=== PATIENT | female | born 1955 | race Caucasian/White ===

== ENCOUNTER 2020-08-18 14:54 | Emergency (ER) | payer OTHER ==
[~2020-08-18] VITALS: Ht 165.1 cm; Wt 88.5 kg
[2020-08-18] MEDS ORDERED: REMERON15 M2 PO (19:20)
[2020-08-18 20:32] VITALS: BP 104/55
--- NOTE | 2020-08-21 07:20 | EKG ---
[address] [place] [address] ELECTROCARDIOGRAM REPORT Name: JENNIE SIFUENTES [facility] [id number] Admission: 08/18/20 Attend Phys: Discharge: 08/18/20 Date of : 53 Report #: [id number] [facility] ED Test Date: 2020-08-18 Test Time: 15:15:45 Pat Name: JENNIE SIFUENTES Department: Room: Gender: F Strong Nitric Operator: JCHAIRADU : 1955 Requested By: J Luis Veloz Order Number: [id number] MD: Jacob Naik Measurements Intervals [place] Rate: 96 P: 57 IA: 154 QRS: 75 QRSD: 93 T: 29 QT: 345 QTc: 436 Interpretive Statements Sinus rhythm RSR' in V1 or V2, probably normal variant Baseline wander in lead(s) V1 No previous ECG available for comparison Electronically Signed On 08-21-2020 7:20:06 SUPPORT WORKER by Jacob Naik [email or web address] <ELECTRONICALLY SIGNED> By: Jacob Naik MD, [facility] 08/21/20 0720 1515 14 Jacob Naik MD, FACC /EPI
== END 2020-08-18 20:48 ==
LOC: ER 14:54
DX: F32.9 Major depressive disorder, single episode, unspecified (principal); F20.2 Catatonic schizophrenia; F22 Delusional disorders; Z79.899 Other long term (current) drug therapy; Z88.1 Allergy status to other antibiotic agents; Z20.828 Contact with and (suspected) exposure to other viral communicable diseases

== ENCOUNTER 2020-08-18 21:39 | Inpatient (IN) | payer OTHER ==
[~2020-08-18] VITALS: Ht 167.6 cm; Wt 47.4 kg
[~2020-08-18 21:39] MED LIST: REMERON15 M2 PO
--- NOTE | 2020-08-18 22:52 | NUR ---
Pt arrived from ED to unit at 2044 via gurny. Pt able to transfer from rmo to bed with SBA. Pt is A&O x 3 upon initial assessment. Able to state name, where she is, month/year. Pt is calm and cooperative with assessment. Pt denies pain. Pt affect is flat, expressionless. Hair is disshevled, 2 layers of clothing on. Reports anxiety and depression both at 9/10. Denies decreased appetite, stating, when i am hungry i eat, when I am not I don't. Quiet demenaor. Denies any SI/HI. Pt oriented to her room. Indepedent with ADLs; completed oral cares, washed face, feet. Dr. Musa and MADHU Gomez notified of arrival of admit to unit and orders received. Will continue to monitor for any changes and safety per unit protocol.
[2020-08-19 00:13] VITALS: BP 113/70
[2020-08-19 08:13] VITALS: BP 100/53
[2020-08-19 09:24] VITALS: BP 100/53
--- NOTE | 2020-08-19 10:36 | NUR ---
1035 RESUMMED CARE FROM OVERNIGHT SHIFT THIS AM, PATIENT IN ROOM LYING QUIETLY. PATIENT DENIES SI/HI/AH/VH AT PRESENT PATIENT ALERT ORIENTED TO SELF AND PLACE. PATIENTS ABDOMEN SOFT FLAT BOWEL SOUNDS PRESENT LUNGS CLEAR. PATIENT IS VERY SAD NOT INTERACTING WITH STAFF PATIENT DID NOT WANT BREAKFAST. PATIENT DID COME TO EXERCISE GROUP AND DID PARTICIPATE PATIENT THEN WENT BACK TO ROOM. PATIENT NEEDS A LOT OF ENCOURAGEING TO EAT AND TO PARTICIPATE IN ACTIVITIES. WILL CONTINUE TO MONITOR PATIENT FOR SAFETY AND BEHAVIORS.
[2020-08-19 13:26] LABS: HEMATOCRIT 48.2 % (37.0-47.0); HEMOGLOBIN 15.6 gm/dL (12.0-15.0); MCH 31.2 pg (26.0-34.0); MCHC 32.4 g/dL (28.0-37.0); MCV 96.3 fL (80.0-100.0); WBC 5.7 thou/uL (4.0-11.0)
[2020-08-19 13:38] LABS: CALCIUM 9.3 mg/dL (8.5-10.1); CREATININE 0.8 mg/dL (0.6-1.0); POTASSIUM 4.3 mmol/L (3.5-5.1)
[2020-08-19 19:35] VITALS: BP 123/69
--- NOTE | 2020-08-20 05:18 | NUR ---
Assumed care of pt @ 1900. Pt calm et cooperative this shift. Refused HS medication. Pt states that she will "sleep fine without it". Unable to assess ambulation as pt remained bedridden this shift. VSWNL. Health assessment with no abnormalities noted at present time. Denies SI/HI/AVH at present time. Currently resting in bed with eyes closed. Will continue to monitor per unit protocol.
[2020-08-20 06:48] LABS: ALBUMIN 3.8 g/dL (3.4-5.0); DIRECT BILIRUBIN 0.1 mg/dL (<0.1-0.2); TOTAL BILIRUBIN 0.5 mg/dL (0.2-1.0); TOTAL PROTEIN 7.6 g/dL (6.4-8.2)
[2020-08-20 07:00] VITALS: BP 124/83
[2020-08-20 09:22] VITALS: BP 124/83
--- NOTE | 2020-08-20 10:48 | NUR ---
1045 RESUMMED CARE FROM OVERNIGHT SHIFT THIS AM, PATIENT IN ROOM ASLEEP. PATIENT IS ORIENTED TIMES 3 PATIENT DENIES SI/HI/AH/VH AT PRESENT. PATIENT DID NOT EAT BREAKFAST AND REFUSED HER MEDICATION. PATIENTS ABDOMEN SOFT FLAT BOWEL SOUNDS PRESENT LUNGS CLEAR. AROUND 10:00 I WENT AND ASKED PATIENT TO COME DAY ROOM SO SHE CAN PARTICIPATE IN GROUPS. SHE DID ASK FOR ICE WATER AND STATES SHE DOES NOT KNOW WHY SHE DOES NOT WANT TO EAT. WILL CONTINUE TO ENCOURAGE PATIENT TO EAT AND DRINK AND MONITOR FOR SAFETY AND BEHAVIORS.
[2020-08-21 03:07] VITALS: BP 103/66
--- NOTE | 2020-08-21 05:45 | NUR ---
Assumed care of patient at 1900. Pt in dining room watching tv throughout earlier portion of evening. Pt affect is flat and depressed. Pt is demeanor is quiet. Pt called and will be bringing pt some personal belongings (shoes, under garments) today. Pt clothing washed last night. Pt continues to report poor to no appetite. Offered dinner and snack at HS; declined, stating nothing sounded good. Pt was compliant with HS medications. First does of olanzipine administered with no s/s of adverse reactions. Pt has rested quietly in bed throughout night. Will continue to monitor for changes and safetuy. Pt is ambulatory and independent with ADLS. Pt continues to report depression and anxiety, denies SI/HI.
[2020-08-21 07:52] VITALS: BP 126/83
--- NOTE | 2020-08-21 17:09 | NUR ---
ISAAC recieved a call from Kathy Stone, . Kathy is the 2nd DPOA. She requested an update on the Pt and had questions concerning Pt's medicaitions. ISAAC provided and update and gave the names of medications. Kathy wanted information on what the medications were treating. ISAAC informed Kathy she would need to speak with Dr. Musa concerning this. ISAAC also informed a text was sent to Dr. Musa concerning her request. Kathy expressed satisfation with this. ISAAC provided Kathy with [facility] schedule and routine on the unit. ISAAC provided with 4 digit code for the Pt. Kathy gave a brief history on Pt. She informed Pt has been hoarding for the last 10-15 years. Pt has an apartment, seperate from her current residence. Pt does use this apartment for storage but it is not packed like her current home. Pt's family is assisting Pt's with cleaning out the home. Kathy expressed the home is unsafe due to the amount of hoarding that has occured over the years. Kathy stated the Pt is still employed with the [employer] as Pt's retirment has not been approved. Kathy also wanted to inform Pt has a history of low blood sugars and Pt gets fatigued if not eating enough protein. Kathy had no further questions or concerns. ISAAC will continue to follow.
--- NOTE | 2020-08-21 18:14 | NUR ---
Alert and orientated X4. Flat affect. States her goal is too feel less depressed. Denies SI/HI. Needs alot of encouragement to eat, prefers to isolate in room. Breath sounds clear. Reg HR auscultated. Hyperdynamic chest wall. Color pale pink with brisk capillary refill and palpable peripheral pulses. Active bowel sounds over soft, flat abdomen. White coating on tongue, able to displace, no erythema or discomfort. States she had BM 2 days ago. Independent with voiding. Refusing Megestrol, Dr. Musa aware. Also refusing glucerna shakes. Eating 10-20% of meals. Currently sitting in day room with peers watching TV.
[2020-08-21 19:43] VITALS: BP 93/67
--- NOTE | 2020-08-22 05:49 | NUR ---
08-21-19 CARE TRANSFERRED 1900 OBSERVED PT SITTING IN DAY ROOM. PT AAOX4, VSS, RR EVEN AND NONLABORED. PT REPORTS FEELING ANXIOUS, BUT HAS BEEN CALM AND COOPERATIVE. PT DENIES PAIN AND SI/HI. ZERO S/S OF ACUTE DISTRESS NOTED, PT WILL CONTINUE TO BE MONITOR PER [facility] PROTOCOL
[2020-08-22 09:16] VITALS: BP 108/68
--- NOTE | 2020-08-22 16:25 | NUR ---
ISAAC recieved a call from the Pt's , Bennie Rachel. Bennie wanted a update on the Pt and the Pt's treatment. ISAAC provided updates and answered Bennie qestions. ISAAC encouraged Bennie to speak with Pt's sisters concerning the conversation they had with Dr. Musa. ISAAC encouraged Bennie to also speak with the sisters on who will call to gather info to give to the rest of the family. Bennie was okay with this information and stated he would try to call the sisters. I did inform Bennie he could call the nurses station and speak with the Pt's nurse if he needed a daily update on the Pt behaviors. Bennie seemed to be okay with this information. He had no other questions or concerns at this time. ISAAC will continue to follow.
--- NOTE | 2020-08-22 18:09 | NUR ---
Alert and orientated X4. Flat affect. States concern is depression. Refusing meds and foods, drinking only H2O. Ambulates with slow, steady gait. Breath sounds clear t/o. Reg HR auscultated. Color pink with brisk capillary refill and palpable peripheral pulses. Independent with voiding. Active bowel sounds over soft, flat abdomen. States she had small BM yesterday. Took approximately 15 min to convince to take PRN ativan at lunch. Did eat part of lunch and snack per report. Refused again at dinner and procrastinated about 45 min before coming out to dining room. Did eat some dinner. No s/o distress.
[2020-08-22 19:32] VITALS: BP 128/87
--- NOTE | 2020-08-23 02:06 | NUR ---
08-22-20 CARE TRANSFERRED 1899. PT AAOX4, VSS, RR EVEN AND NONLABORED ON RA, PT PRESENTS TEARFUL AND WITHDRAWN, WHEN ASKED PT ABOUT WHAT IS MAKING HER SAD, SHE DID NOT ENGAGE IN COMMUNICATION. ASSISTED PT WITH BED ADJUSTEMENT FOR COMFORT. PT DENIED PAIN AND SI/HI. PT HAD NO DIFFICULTIES DURING MEDICATION ADMIN. AND DRANK 240ML OF WATER, PT REFUSED SECOND ATTEMPT FOR HS SNACK. ZERO S/S OF ACUTE DISTRESS NOTED, PT WILL CONTINUE TO BE MONITOR PER [facility] PROTOCOL.
[2020-08-23 09:19] VITALS: BP 102/70
--- NOTE | 2020-08-23 12:02 | NUR ---
ASSUMED CARE AT 0700 TODAY. PT. IN HER ROOM, WASHING HER FACE AND COMBING HER HAIR. SHE CAME ONTO THE UNIT AT BREAKFAST TIME. HOWEVER, SHE DID NOT EAT BREAKFAST, SHE SAT ON THE SOFA THE ENTIRE TIME. SHE RESISTED TAKING HER MORNING MEDICATION. SHE SPIT OUT MOST OF IT. SHE DID MANAGE TO GET ABOUT 1/2 DOWN WITH ASSISTANCE OF THIS RN. SHE IS QUIET AND ANSWERING QUESTIONS WITH SHORT ONE WORD ANDSWERS AT THIS TIME. SHE DID SIT ON THE SOFA FOR MORNING MEETING.
[2020-08-23 12:07] VITALS: BP 102/70
--- NOTE | 2020-08-23 15:31 | NUR ---
Pt present in afternoon group this day but not participating even minimally as she has done previously. When group was complete, pt was observed to be hesitant to ambulate out of room. When she did finally stand up she began to stumble and leaned herself on supply cabinets. DIE CASTING MACHINE SETTER and RN came to assist pt to be seated in the day room where DESTINATION COORDINATOR met with her to follow up with reasoning behind her resistance to group. Pt was wearing mask but appeared distraught and began crying hysterically. DESTINATION COORDINATOR encouraged pt to share 1 thing that was upseting her, and she would not. When DESTINATION COORDINATOR began to close conversation and walk away pt stated, "ok ok I will talk." Pt requested to go to her room where it was quieter and ambulated there independently. Once in her room she began crying hysterically again. DESTINATION COORDINATOR asked pt what her reasoning behind no longer eating was and pt explained hesitantly that when she eats or drinks there is a unpleasant taste to it. She explained this as she took a drink of water and grimaced, stating, "I don't know why I continue to even try to drink." Pt then stated, "I know I smell, but even when I showered, the washcloth smelled bad, and I still smell." Pt agreed that food and drinks taste bad at home as well and she was worried that someone had done something to them. She did not want her to eat or drink because of this. When asked if pt had experienced hallucinations or sees/hears things that others cannot, pt responded, "I don't know what you see so I can't answer that." Her conversation alluded to a lot of paranoia-- "I know that this is all being recorded. I don't know how but it is." "Why would they let the people with the red tags be in their rooms alone without any recordings. The red tags are to christine the people who might harm themselves." When DESTINATION COORDINATOR wrapped up discussion and began to leave room pt again started to hysterically cry. When asked if she was ready to share what was upsetting her she stated, "I don't want it to turn night time, someone is going to hurt me." DESTINATION COORDINATOR assured pt that she was safe on the unit, which pt disagreed to. She then stated, "I don't even think these clocks are right. I think you guys change them so we don't know night from day." DESTINATION COORDINATOR left room with reassurance to pt that DESTINATION COORDINATOR would follow up with her again tomorrow.
[2020-08-23 20:06] LABS: SYPHILIS AB Non Reactive (Non Reactive)
[2020-08-23 20:10] VITALS: BP 132/91
--- NOTE | 2020-08-24 05:54 | NUR ---
Assumed care of patient at start of shift @ 1900. Pt resting in room with eyes closed at that time and appears to have been sleeping. Pt called and is wanting to speak with Dr. Musa. Stated he had asked day shift nurse to have Dr. Musa call him and he had yet to hear from her. Pt easily awoken for scheduled HS medications. Pt compliant with medications and HS assessment. Pt denies any pain. Pt rating anxiety and depression both 9/10. Denies any thoughts of SI/HI. Pt affect is flat, overall eye contact is poor, but improving. Pt demeanor is quiet. When asked how her day had been, she states, sad. Said she is sad just dealing with all of her problems. Pt reports she still does not have a huge appetite, but thinks it is getting a little better. Offered HS snack, pt declined. Did drink apple juice with medications. Pt has remained in her room majority of the shift. Pt rested quietly in bed throughout the night. Pt reports last BM was on 08/23/20. Will continue to monitor for any changes in behavior/mood and for safety per unit/hospital protocol.
[2020-08-24 08:09] VITALS: BP 113/73
--- NOTE | 2020-08-24 08:44 | NUR ---
PT SITTING AT BREAKFAST AND DIDN'T WANT TO EAT. PT ENCOURAGED TO TAKE MEDS THIS AM AND PT REFUSED. PT LUNGS CLEAR. PT HAD PAST LUMPECTOMY TO RT CHEST. PLACED LIMB ALERT TO RT ARM. PT DENIES ANY PAIN. PT SLOW TO ANSWERING QUESTIONS.
[2020-08-24 09:23] VITALS: BP 113/73
--- NOTE | 2020-08-24 11:57 | NUR ---
Nutrition: Pt with very little oral intake, refuse to 5% of meals past 5 days with severe malnutrition present. Pt not taking supplements ( so far ) and unable to provide food preferences despite RD attempts to assist with meal ordering. Not taking meds/appetite stimulants. Paranoia an issue. If patient condition does not improve soon, may need to address goals of care/possible PEG for nutrition if aggressive.
--- NOTE | 2020-08-24 12:10 | NUR ---
ADM LORAZEPAM 1MG IM TO LEFT DELTOID. PT DIDN'T WANT TO HAVE A SHOT. STATED SINCE REFUSED AM MED SHE NEEDED TO TAKE TO HELP HER CONDITION.
--- NOTE | 2020-08-24 12:19 | NUR ---
PT DID EAT PEACHES AND GLUCERNA SHAKE WITH BENAPROTIEN IN IT.
--- NOTE | 2020-08-24 14:50 | NUR ---
PT ZOOMED WITH DR. RESENDEZ. SHE STATED THAT THE ATIVAN HELPED HER. SHE IS MORE TALKATIVE AT THIS TIME.
--- NOTE | 2020-08-24 17:18 | NUR ---
PT EATING DINNER TONIGHT. PT WANTED A SHOWER TODAY, GABRIEL STATED SHE HAD ONE. PT DRINKING WATER WITH DINNER.
[2020-08-24 19:45] VITALS: BP 116/74
[2020-08-24 23:23] VITALS: BP 116/74
--- NOTE | 2020-08-25 04:48 | NUR ---
Assumed care of patient this pm shift. Patient is sitting in the mileu upon assessment. Patient is calm and cooperative. Takes medications whole with thin fluids. Affect is blunted. Patient ambulates without assistance using the hallway rails to better her gait. No negative behaviors seen this shift. Alert and oriented to person, time, and place. Assessment shows no signs of acute distress. Continent of bowel and bladder. Patient came out and checked the clock a couple of times during the night. We will continue to monitor per hospital policy.
[2020-08-25 08:14] VITALS: BP 91/64
--- NOTE | 2020-08-25 08:26 | NUR ---
PT SITTING OUT IN DINING ROOM THIS AM. PT PICKING AT FOOD. PT HAD A FEW BITES OF EGGS. PT TOOK LORAZEPAM BUT REFUSED TO TAKE MEGACE. PT HAS FLAT AFFECT, SLOW TO RESPOND TO STAFF QUESTIONS. PT LUNGS CLEAR. LBM 08/23.
[2020-08-25 08:30] VITALS: BP 91/64
--- NOTE | 2020-08-25 12:22 | NUR ---
PT REFUSED TO TAKE LORAZEPAM AT NOON. PT STATED SHE TOOK IT EARLIER. TOLD PT IT IS WITH EACH MEAL.
--- NOTE | 2020-08-25 16:22 | NUR ---
DURING WEEK ONE OF ADMISSION, PATIENT REFUSED TO EAT AND REFUSED TO TAKE MOST MEDICATIONS. PT HAS ATTENDED MAJORITY OF RECREATION THERAPY GROUPS IN THE [facility]. PT WILL NEED ENCOURAGEMENT FOR THE MOST PART TO EAT, ATTEND GROUPS, AND TAKE MEDICATIONS. RECREATION THERAPIST WILL CONTINUE TO ENCOURAGE PATIENT TO ATTEND GROUPS DAILY.
--- NOTE | 2020-08-25 17:12 | NUR ---
PT ENCOURAGED TO TAKE HER MEDICATION. PT EATING FEW BITES OF BURGER AND SOME LETTUCE AND TOMATO. PT DID FINALLY TAKE MED DUE TO POSS INJECTION. PT DID TAKE MEDICATION WITH ENCOURAGEMENT.
--- NOTE | 2020-08-25 20:00 | NUR ---
TALKED TO PAMELA ON THE PHONE AND HE IS UPSET AND WANTING TO TALK TO DR. LOPEZ. HIS NUMBER IS [phone]. LEFT MESSAGE WITH DR. LOPEZ.
[2020-08-25 20:14] VITALS: BP 97/44
--- NOTE | 2020-08-26 05:08 | NUR ---
Assumed care of pt @ 1900. Pt calm et cooperative this shift. Took medications whole without difficulty. Ambulates the halls ad arielle with somewhat steady gait. VSWNL. Health assessment with no abnormalities noted this shift. Denies SI/HI/AVH at present time. Socialized with peers in dayroom until HS. Currently resting in bed with eyes closed. Will continue to monitor per unit protocol.
[2020-08-26 05:57] LABS: HEMATOCRIT 50.3 % (37.0-47.0); MCH 31.4 pg (26.0-34.0); MCHC 31.8 g/dL (28.0-37.0); MCV 98.8 fL (80.0-100.0); RBC 5.1 mil/uL (4.20-5.00); RDW 13.4 % (10.5-14.5); WBC 7.2 thou/uL (4.0-11.0)
[2020-08-26 06:12] LABS: ALBUMIN 3.7 g/dL (3.4-5.0); CREATININE 1.2 mg/dL (0.6-1.0); POTASSIUM 4.1 mmol/L (3.5-5.1); TOTAL BILIRUBIN 0.7 mg/dL (0.2-1.0); TOTAL PROTEIN 7.3 g/dL (6.4-8.2)
[2020-08-26 08:00] VITALS: BP 94/66
--- NOTE | 2020-08-26 19:07 | NUR ---
Assumed Pt care at 0700. Pt was in the day room resting. Pt was alert oriented x4. Assesments completed, VS were stable. Pt denies SI/HI, there was no sign of distress. Pt denies pain, she took her medication whole without difficulties. Pt was co-operative with medication and care. At 0801 pt received IV sodium chloride 0.9%, 950ml was infused. IV was disconnected at 1030am. Pt attempted to eat breakfast and lunch, but she was unable due to lack of appetite. Pt ate 20% of her dinner and drank 10% of her food supplement. Pt called at approximately 1840 and spoke with Pt.
[2020-08-26 19:28] VITALS: BP 94/66
--- NOTE | 2020-08-27 05:38 | NUR ---
Assumed care of pt @ 1900. Pt calm et cooperative this shift. Took medications whole without difficulty. Ambulates the halls ad arielle with unsteady gait. VSWNL. Health assessment with no abnormalities noted at present time. Denies SI/HI/AVH at present time. Socialized with peers in dayroom until HS. Currently resting in bed with eyes closed. Will continue to monitor per unit protocol.
[2020-08-27 07:01] LABS: CREATININE 1.1 mg/dL (0.6-1.0); POTASSIUM 3.7 mmol/L (3.5-5.1)
--- NOTE | 2020-08-27 10:49 | NUR ---
DR. PEREZ PAGED X2 THIS AM APPROX 0720 RE NA OF 163-TO UNIT TO ASSESS THIS AM-NO NEW ORDERS AT THIS TIME. BP LOW ON MACHINE AT 86/58-RECHECKED MANUALLY AND IS 100/68-DENIES DIZZINESS/LIGHTHEADNESS-ENCOURAGED TO ARISE SLOWLY AND CALL FOR STAFF TO ASSIST WITH AMBULATION. FLAT AFFECT-DELAYED VERBAL RESPONSES AND POOR EYE CONTACT DURING AM ASSESSMENT. OFFERS MINIMAL VERBAL RESPONSES TO QUESTIONS ASKED. DENIES ACUTE ANXIETY-DOES ACKNOWLEDGE FEELING "A LITTLE" SAD-WHEN ASKED TO RATE ANXIETY/DEPRESSION ON 1-10 SCALE STATES AFTER SIGNIFICANT DELAY "I DON'T KNOW" DENIES SI/HI/SH. REFUSED BREAKFAST THIS AM DESPITE MULTIPLE REATTEMPTS OFFERS TO ORDER ALTERNATIVE SELECTION. DID DRINK APPROX 2/3 OF SUPPLEMENT WITH MUCH COAXING- IS DRINKING WATER WITHOUT ENCOURAGEMENT-APPROX 120 CC SO FAR THIS AM.
[2020-08-27 11:02] VITALS: BP 100/68
--- NOTE | 2020-08-27 16:42 | NUR ---
IV FLUIDS RE-STARTED AT APPROX 1430 PER MD ORDER. RELUCTANT TO COME SIT IN DAYROOM AREA WHILE FLUIDS INFUSING STATING "WHY DO I HAVE TO I WANT TO STAY IN MY ROOM" INFORMED THAT PER UNIT PROTOCOL SHE HAS TO BE WITHIN SITE OF STAFF AT ALL TIMES WHILE IV INFUSING. DID COME TO DAYROOM-SULLEN MOOD/AFFECT-TURNING CHAIR WITH BACK TO STAFF-DID PARTIALLY CORRECT WHEN ASKED TO. AT 1630 NOTED TO BE PICKING AT IV SITE AND WHENAPPROACHED BY STAFF ABRUPTLY YANKED AT IV PULLING OUT. SMALL AMOUNT BLEEDING-PRESSURE APPLIED. WHEN QUESTIONED WHY SHE HAD PULLED IV OUT REFUSES TO ANSWER. IV TEAM PAGED.
--- NOTE | 2020-08-27 17:50 | NUR ---
IV RESTARTED IN LEFT HAND-WRAPPED WITH COBAN TO SECURE SITE AND DETER PT FROM REMOVING-IV D5W RESTARTED AT 250ML/HR -STAFF AT SIDE FOR CONSTANT OBSERVATION UNTIL 1 LITER INFUSED. INITIALLY WHEN IV RESTARTED ASKED SEVERAL TIMES "WHY ARE YOU DOING THAT" "WHY DO I NEED THAT" "I DON'T NEED THAT" CURRENTLY SITTING WITH EYES TIGHTLY CLOSED AND BACK TURNED TO STAFF.
[2020-08-27 18:51] VITALS: BP 100/66
--- NOTE | 2020-08-28 02:36 | NUR ---
assumed care approx 1900 evening 08/27. pt in dining area before hs. pt somewhat weak while ambulating and assist x1 when going back to her room. pt took hs meds with water willingly. pt requested to talk to on phone before falling asleep and pt given unit phone to call for short call. pt appears to be sleeping soundly with 12 minute rounding. bed alarm on and call light in reach. will continue to monitor.
[2020-08-28 09:33] VITALS: BP 79/51
[2020-08-28 12:11] VITALS: BP 79/51
--- NOTE | 2020-08-28 17:47 | NUR ---
ASSUMED CARE AT 0700 TODAY. PT. CONTINUES TO BE UNWILLING OR UNABLE TO EAT, DRINK AND TAKE MEDICATIONS. SHE SPEAKS VERY LITTLE TO STAFF BUT WILL SAY A FEW WORDS. SHE IS WEAK, REQUIRING ASSISTANCE OF AT LEAST ONE STAFF TO AMBULATE. SHE WANTED A SHOWER TODAY, HOWEVER, SHE STATED SHE WAS "TOO TIRED TO TAKE A SHOWER".
[2020-08-28 19:35] VITALS: BP 115/77
--- NOTE | 2020-08-29 03:25 | NUR ---
08-29-20 CARE TRANSFERRED 1914. PT AAOX4, VSS, SLIGHT ELEVATED TEMP., RR EVEN AND NONLABORED ON RA. PT DENIES SI/HI AND PAIN. ASSISTED PT TO BATHROOM, PT IS WEAK AND HAS UNSTEADY GAIT. FALL PRECAUTION HAS BEEN PUT INTO PLACE. PT ATE 70% OF HS SNACK AND ENCOURAGE HYDRATION. PT IS COOPERATIVE BUT IS WITHDRAWN AND WILL ANSWER QUESTIONS BUT DOES NOT ENGAGE IN CONVERSATION. PT BED WAS ADJUSTED FOR COMFORT. ZERO S/S OF ACUTE DISTRESS, PT WILL CONTINUE TO BE MONITOR.
[2020-08-29 07:30] VITALS: BP 94/64
[2020-08-29 14:58] LABS: CREATININE 0.7 mg/dL (0.6-1.0); POTASSIUM 4.1 mmol/L (3.5-5.1)
--- NOTE | 2020-08-29 17:41 | NUR ---
Assumed pt care at 0700. Pt was in her room resting. Pt was was assisted to the bathroom, pt was alert and oriented x4. assessment completed and VSS. pt denies SI/HI.There was no c/o of pain and distress at this time. Pt participated in group. MACHINE PULLER OVER gave pt a shower.Pt took her medication whole without difficulties. During medication administration Pt asked question about all her medication. Pt ambulates with unsteady gait. Pt was calm and co-operative, but she was also sad and depressed. Will continue to monitor.
[2020-08-29 19:31] VITALS: BP 88/41
[2020-08-29 21:13] LABS: HEMATOCRIT 40.7 % (37.0-47.0); HEMOGLOBIN 13.4 gm/dL (12.0-15.0); MCH 31.7 pg (26.0-34.0); MCHC 32.8 g/dL (28.0-37.0); MCV 96.5 fL (80.0-100.0); RBC 4.22 mil/uL (4.20-5.00); RDW 12.9 % (10.5-14.5); WBC 6.2 thou/uL (4.0-11.0)
--- NOTE | 2020-08-30 05:57 | NUR ---
08-29-20 CARE TRANSFERRED 1900 OBSERVED PT IN DINING ROOM EATING. PT AAOX4, VSS, RR EVEN AND NONLABORED ON RA. PT DENIES ANY PAIN AND SI/HI. PT STILL NOT ENGAGING IN CONVERSATION BUT IS CALM AND COOPERATIVE. PT PRESENTS SAD AND DEPRESSED. PT DID ATE 30% HS SNACK. ZERO S/S OF ACUTE DISTRESS NOTED, PT WILL CONTINUE TO BE MONITOR PER [facility] PROTOCOL.
[2020-08-30 07:48] VITALS: BP 101/64
--- NOTE | 2020-08-30 08:35 | NUR ---
PT SITTING IN DINING ROOM EATING BREAKFAST. PT ATE 25% OF BREAKFAST. PT NEEDED ENCOURAGED TO TAKE MEGACE THIS AM. PT SEEMS CALM, AND DEPRESSED. ASSISTED PT THIS AM WALKING TO DINING ROOM. PT GAIT UNSTEADY AND NEEDS STAND-BY ASSIST.
[2020-08-30 08:40] VITALS: BP 101/64
--- NOTE | 2020-08-30 17:02 | NUR ---
PT DID EAT 50% OF LUNCH TODAY. PT ASKING ABOUT GETTING A SHOWER TODAY. WILL ASSIST PT AFTER DINNER.
[2020-08-30 19:00] VITALS: BP 109/69
--- NOTE | 2020-08-31 00:50 | NUR ---
Assumed care for pt at 1900. Pt up in dining room at beginning of shift. Pt went to her room early in shift and resting in bed with eyes closed. Pt easily aroused for shift assessment and HS medications. Pt is compliant with assessment and medications. Takes medications whole w/thin liquid. Pt declines HS snack. Pt denies having pain. Pt presents with flat, depressed affect. Pt has poor eye contact and is very soft spoken. Pt reports feeling sad and depressed. Pt denies SI/HI. Pt reports she took shower Friday on day shift. Pt is not observed having any acute distress or discomfort. Pt is on 12 minute rounds for safety. Will continue to monitor per hospital and unit protocol for changes in behavior and safety. Pt has orders for CBC without differential to be drawn on 08/31/20. Pt is now a daily weight and has supplements ordered with each meal. Continue to offer and monitor nutritional intake. Pt is a high fall risk and has fall protocols in place.
[2020-08-31 05:37] LABS: HEMATOCRIT 39.5 % (37.0-47.0); HEMOGLOBIN 13.1 gm/dL (12.0-15.0); MCH 31.6 pg (26.0-34.0); MCHC 33.1 g/dL (28.0-37.0); MCV 95.7 fL (80.0-100.0); RBC 4.13 mil/uL (4.20-5.00); RDW 12.8 % (10.5-14.5); WBC 5.4 thou/uL (4.0-11.0)
[2020-08-31 09:01] VITALS: BP 106/60
[2020-08-31 09:08] VITALS: BP 106/60
--- NOTE | 2020-08-31 14:04 | NUR ---
1300 RESUMMED CARE FROM OVERNIGHT SHIFT THIS AM, PATIENT IN ROOM LYING QUIET. PATIENT CAME TO DAY ROOM ATE PARTIAL BREAKFAST TOOK MEDICATION WITHOUT INCIDENCE. PATIENT ALERT ORIENTED TIMES 3 PATIENTS AFFECT FLAT NOT INTERACTING WITH OTHER PATIENTS. PATIENT APPEARS WEAK AND NEEDED HELP TRANSFERRING FROM W/C TO LAILA CHAIR. PATIENT DENIES SI/HI/AH/VH AT PRESENT PATIENTS ABDOMEN SOFT FLAT. BOWEL SOUNDS PRESENT LUNGS CLEAR WILL CONTINUE TO ENCOURAGE PATIENT TO EAT AND DRINK MORE. WILL MONITOR FOR SAFETY AND BEHAVIORS.
--- NOTE | 2020-08-31 14:50 | NUR ---
RT Progress Note- Shellie has continued to be present in both the milieu and recreation therapy groups each day though she remains guarded. She has participated fairly in groups and states that she feels she has more energy since she has begun eating more than she had been. FRAMING AND HANGING will continue to encourage participation.
[2020-08-31 19:29] VITALS: BP 113/62
[2020-08-31 20:31] VITALS: BP 113/62
--- NOTE | 2020-09-01 01:19 | NUR ---
PATIENT STAYED IN HER ROOM TONIGHT RESTING IN BED. SHE IS A/0X3. SHE HAS A FLAT AFFECT AND TALKS VERY SOFTLY. SHE DENIES PAIN. SHE IS WEAK WHEN STANDING. PATIENT DENIES SI/HI/AVH. PATIENT TOOK HER MEDS WHOLE WITH WATER. SHE REFUSED HS SNACK TONIGHT, HOWEVER WAS REPORTED THAT PATIENT IS EATING BETTER AND EATS 20 TO 30% OF HER MEALS. SHE IS TAKING HER SUPPLEMENTS ALSO. PATIENT APPEARS TO BE SLEEPING AT THIS TIME. BED IN LOW POSITION AND BED ALARM IS ON. CONTINUING TO MONITOR.
[2020-09-01 06:39] LABS: HEMATOCRIT 39.3 % (37.0-47.0); MCH 31.4 pg (26.0-34.0); MCHC 33.1 g/dL (28.0-37.0); MCV 94.9 fL (80.0-100.0); RBC 4.14 mil/uL (4.20-5.00); RDW 13.1 % (10.5-14.5); WBC 5.4 thou/uL (4.0-11.0)
[2020-09-01 07:25] LABS: ALBUMIN 2.6 g/dL (3.4-5.0); CALCIUM 9.1 mg/dL (8.5-10.1); CREATININE 0.6 mg/dL (0.6-1.0); POTASSIUM 3.6 mmol/L (3.5-5.1); TOTAL BILIRUBIN 0.4 mg/dL (0.2-1.0); TOTAL PROTEIN 5.5 g/dL (6.4-8.2)
[2020-09-01 08:30] VITALS: BP 74/43
--- NOTE | 2020-09-01 08:45 | NUR ---
PT SITTING IN DINING ROOM PICKING AT BREAKFAST FOOD. PT DENIES ANY PAIN. PT ENCOURAGED TO TAKE MEDICATION. PT TOOK MED WITHOUT ANY ISSUES. PT BP LOW THIS AM WILL RECHECK. PT HAS FLAT AFFECT AND IS WITHDRAWN. PT USING WALKER THIS AM.
[2020-09-01 09:57] VITALS: BP 74/43
[2020-09-01 14:00] VITALS: BP 100/64
--- NOTE | 2020-09-01 17:37 | NUR ---
PT SITTING IN DINING ROOM AND ATE 50% OF ORDER FILLER SALAD. PT DIDN'T WANT DRESSING ON SALAD. PT HAD 1/2 COTTAGE CHEESE AND 1/2 GLUCERNA SHAKE. PT TOOK MEDS WITHOUT ANY ISSUES.
[2020-09-01 20:31] VITALS: BP 100/57
[2020-09-01 21:36] VITALS: BP 100/57
--- NOTE | 2020-09-01 21:43 | NUR ---
Assumed care for pt at 1900. Pt in room at start of shift on phone with her . Pt has remained in her room throughout the evening. Pt presents with a flat affect and depressed mood. Pt does report she feels her depression is getting better. Pt denies anxiety, SI/HI at time of assessment. Pt denies having any pain. Pt compliant with medications and takes whole with thin liquids. Pt reports she feels her appetite is improving. Pt focused on what medications she is taking and asking questions regarding how long she will have to continue to take the medications, especially after she discharges. Pt is A&O x 4. Pt is resting quietly in her bed at this time. Pt is on 12 minutes checks for safety. Pt is on high fall risk protocol r/t weakness and unsteady gait. Pt is amubulatory and utilizes a walker. Will continue to monintor for any changes in mood/behavior and for safety per unit/hospital protocol.
[2020-09-02 06:20] LABS: HEMATOCRIT 38.4 % (37.0-47.0); HEMOGLOBIN 12.8 gm/dL (12.0-15.0); MCH 31.8 pg (26.0-34.0); MCHC 33.4 g/dL (28.0-37.0); MCV 95.2 fL (80.0-100.0); RBC 4.04 mil/uL (4.20-5.00); RDW 12.8 % (10.5-14.5); WBC 5.4 thou/uL (4.0-11.0)
[2020-09-02 08:24] VITALS: BP 107/61
--- NOTE | 2020-09-02 12:05 | EKG ---
[place] [address] [facility] [place] [address] ELECTROCARDIOGRAM REPORT Name: JENNIE SIFUENTES Room #: [facility] ADM IN M.R.#: [id number] Admission: 08/18/20 Attend Phys: Lacey Musa MD Discharge: Date of : 53 Report #: [id number] [facility] Test Date: 2020-09-02 Test Time: 09:46:18 Pat Name: JENNIE SIFUENTES Department: Room: [facility] Gender: F Floor Cashier: : 1955 Requested By: Lacey Musa Order Number: [id number] MD: Howard Wallace Measurements Intervals [place] Rate: 73 P: 84 DC: 163 QRS: 83 QRSD: 90 T: 56 QT: 358 QTc: 395 Interpretive Statements Sinus rhythm Borderline right axis deviation RSR' in V1 or V2, probably normal variant Left ventricular hypertrophy Compared to ECG 08/18/2020 15:15:45 Electronically Signed On 09-02-2020 12:05:42 PLASTERING CONTRACTOR by Howard Wallace [email or web address] <ELECTRONICALLY SIGNED> By: Howard Wallace MD 09/02/20 1205 5 Howard Wallace MD /JOHANNA
--- NOTE | 2020-09-02 17:59 | NUR ---
Assumed pt care at 0700. pt was sitting in the room. Pt was alert and oriented x4. Assessment COMPLETED, VSS. PT denies SI/HI. PT DENIES PAIN. PT was calm cooperative, pt asked question about all the medication being administered to her. Pt requested that flex o writer operator call her , which she spoke on the phone. pt participated in all the activities. Pt affect is flat. Pt occassionally walked around the unit with a walker. PRIVATE WEALTH ADVISOR gave pt a shower. will continue to monitor.
[2020-09-02 19:29] VITALS: BP 99/55
--- NOTE | 2020-09-03 04:00 | NUR ---
Assumed care for pt at 1900. Pt awake in room at start of shift on telephone with her . Pt is A&Ox4. Pt affect remains flat. Pt eye contact upon conversation has improved. Pt reports she still feels depressed and anxious, but does not rate, but states she feels it has improved. Pt deneis SI/HI. Pt denies any pain. Pt is medication compliant. Pt is ambulatory with a walker. Pt is on high fall risk protocol d/t weakness r/t poor appetite/not eating. Pt does report improvement in appetite. Pt reports she ate about 1/2 of her dinner but that it was not good, that it was some meat stuff with terrible gravy. Pt continues on daily weights. Pt reports last BM was on 09/01/20. Pt is independent with ADLs. Pt has rested in bed throughout night with eyes closed and appears to be sleeping without difficulty. Pt is on 12 minute checks for safety. Will continue to monitor per hospital/unit protocol any changes in mood/behavior and/or safety.
[2020-09-03 08:10] VITALS: BP 115/67
--- NOTE | 2020-09-03 08:29 | NUR ---
PT SITTING IN DINING ROOM THIS AM. PT DID TAKE MAGACE AND STATED THAT IT DIDN'T TASTE GOOD. PT DID DRINK ALL OF IT. PT UP WITH WALKER, CALM AND COOROPERATIVE. INTERACTIVE WITH STAFF WHEN SPOKEN TOO, STAYS TO HERSELF.
[2020-09-03 08:30] VITALS: BP 115/67
--- NOTE | 2020-09-03 12:30 | NUR ---
PT ATE 50% OF LUNCH.
--- NOTE | 2020-09-03 17:30 | NUR ---
PT ATE 75% OF DINNER. PT SEEMS MORE ALERT SINCE CHANGE IN MEDICATION.
[2020-09-03 19:20] VITALS: BP 93/50
--- NOTE | 2020-09-04 05:25 | NUR ---
Assumed care for pt at 1900. Pt up in dining room watching [employer] game with peer. Pt affect is flat, but pt is interacting more than she has been w/ a peer on the unit. Pt is compliant with HS medications and takes them whole with water. Pt denies having any pain. Pt does report appetite has continued to improve. Is wanting to talk with doctor about stopping taking appetite stimulate and states that she does not feel she needs it now that she is eating agin. Pt denies SI/HI but does report continued/but improved depression and anxiety. Pt is a daily weight. Pt bed weight this morning was 104.2. Pt is on 12 minute checks for safety. Will continue to monitor for any changes in mood/behavior and safety per unit/hospital protocols.
[2020-09-04 08:53] VITALS: BP 100/63
[2020-09-04 09:28] VITALS: BP 100/63
--- NOTE | 2020-09-04 10:32 | NUR ---
1030 RESUMMED CARE FROM OVERNIGHT SHIFT THIS AM, PATIENT QUIET IN DAY ROOM. PATIENT ATE 65% OF BREAKFAST AND TOOK MEDICATION WITHOUT INCIDENCE. PATIENT ORIENTED TIMES 4 PATIENT DENIES SI/HI/AH/VH AT PRESENT. PATIENT WANTS TO GO HOME AND IS EATING BETTER AND DRINKING. PATIENT PARTICIPATES IN GROUPS CALM COOPERATIVE WILL CONTINUE TO MONITOR PATIENT FOR SAFETY AND BEHAVIORS.
--- NOTE | 2020-09-04 18:07 | NUR ---
PT. ASKED FOR SHOWER. SHE WAS TAKEN TO THE SHOWER/TUB ROOM AND ALLOWED TO TAKE A SHOWER.
[2020-09-04 19:10] VITALS: BP 101/62
--- NOTE | 2020-09-05 02:44 | NUR ---
Assumed care for pt at 1900. Pt in room on phone with at start of this shift. Pt has remained in her room throughout this shift. Pt is cooperative with nursing assessment and HS medications. Pt denies pain. Pt reports improvement in mood and anxiety. Denies SI/HI. Pt reports appetite continues to improve. Daily weight taken at 0230 and pt weighs 103.5. Pt last BM was on 09/04/20. Pt called and spoke with nurse during evening and is requesting for Dr. Musa to call him on Friday. Pt affect is flat. Pt demeanor is quiet, and she does not typically initate conversation, but will respond appropriately when conversation is initiated with her. Pt is ambulatory with walker. Pt has high fall risk interventions initiated. Pt is on 12 min checks for safety. Will continue to monitor for any changes in mood/behavior and for safety per hospital/unit protocols.
[2020-09-05 05:56] LABS: HEMATOCRIT 37.3 % (37.0-47.0); HEMOGLOBIN 12.4 gm/dL (12.0-15.0); MCH 31.6 pg (26.0-34.0); MCHC 33.4 g/dL (28.0-37.0); MCV 94.8 fL (80.0-100.0); RBC 3.93 mil/uL (4.20-5.00); RDW 12.8 % (10.5-14.5)
[2020-09-05 06:14] LABS: CALCIUM 9.3 mg/dL (8.5-10.1); CREATININE 0.6 mg/dL (0.6-1.0); POTASSIUM 3.7 mmol/L (3.5-5.1)
--- NOTE | 2020-09-05 11:13 | NUR ---
Assumed pt care at 0700, pt was alert and oriented x4. assessment completed and vs stable. Pt denies pain and distress. Pt denies SI/HI. Pt ambulates with a steady gait. pT participated in groups, her goal is to get better and go home. DURING MORNING MEDICATION ADMINISTRATION, PT was paranoid and suspicious with her medication. she stated that she was NO longer on Megestrol and lorazepam.CHIP MIXER EXPLAINED THE MEDICATIONS TO HER AND WHY SHE WAS ON THEM. PT TOOK THE MEDICATION BROUGHT IT SO CLOSE TO HER EYES , THEN SHE PUT IT BACK ON THE TABLE SEVERALLY. IT TOOK MINUTES AND LOTS OF EXPLANATION BEFORE PT TOOK THE MEDICATION. pt TOOK HER MEDICATION WHOLE. SHE WALKS ROUND THE UNIT. WILL CONTINUE TO MONITOR.
--- NOTE | 2020-09-05 16:38 | NUR ---
ISAAC walked up to the nursing unit and Nurse Landis informed Pt's sister requested to speak with the treatment team. Nurse Landis handed phone to ISAAC. ISAAC spoke with Faby Albert, Pt's sister. Faby had questions concerning Pt having a TV in her room and acess to music. Faby also asked if Pt could see a natural gas plant technician. ISAAC informed the spiritual services are avaliable at the Pt's request or if asked by staff and Pt is in agreement. ISAAC explained the [facility] schedule and explained policy around items allowed on the unit. ISAAC explained to Faby that in order to keep confusion to a minimum [facility] will communicate with the Pt's primary DPOA concerning treatment. ISAAC asked that the family call together or provide question to DPOA. ISAAC encouraged phone calls to the Pt from family memeber. Faby had no further question or concerns at this time. ISAAC will continue to follow up
[2020-09-05 19:57] VITALS: BP 104/71
[2020-09-05 20:00] VITALS: BP 104/71
--- NOTE | 2020-09-06 02:49 | NUR ---
PATIENT WENT TO BED AROUND 1999. SHE DID ACCEPT A PHONE CALL FROM HER AND SPOKE WITH HIM FOR A BIT. SHE IS A/0X4. SHE DENIES PAIN,SI/HI/AVH. SHE IS MORE STEADY ON HER FEET. SHE DID ASK ABOUT HER MEDS TONIGHT WHEN GIVING HER DOSE AT 2100. PATIENT HAS BEEN CALM AND COOPERATIVE. SHE STATES THAT SHE IS EATING MORE FOOD AT HER MEALS AND FEELS HER APPETITE HAS COME BACK. SHE IS WANTING TO SPEAK WITH DR LOPEZ ABOUT REMOVING ALL APPETITE STIMULANTS FROM HER MED LIST. PATIENT RESTING IN BED WITH EYES CLOSED AT THIS TIME. BED IN LOW POSITION AND BED ALARM ON. ROUTINE ROUNDS TO ASSESS SAFETY AND STATUS OF PATIENT.
[2020-09-06 08:22] VITALS: BP 107/71
--- NOTE | 2020-09-06 10:34 | NUR ---
PATIENT HAS BEEN UP, AND OUT ON THE UNIT, AMBULATES WITH SLOW STEADY GAIT. PATIENT TOOK ALL MEDICATION WHOLE WITHOUT DIFFICULTY. SHE IS EATING MEALS, AND DRINKING FLUID FAIRLY WELL, HAD ABOUT 75% BREAKFAST THIS MORNING. PATIENT DENIES SUICIDAL/HOMICIDAL IDEATION, SHE DENIES DEPRESSION " AM NOT DEPRESSED, FOR ANXIETY "JUST A LITTLE". PATIENT DENIES HAVING PHYSICAL PAIN. AFFECT IS FLAT, MOOD IS DEPRESSED. NO SIGN OF ACUTE DISTRESS NOTED AT THIS TIME, WILL MONITOR FOR SAFETY.
--- NOTE | 2020-09-06 16:01 | NUR ---
09/05/2020 @ 5pm ISAAC particpated in a meeting with Pt's and Sister Barby. In this meeting SW gave and update on the Pt. SW provide education on what an acute inpt stay is, what uptpt services are avaliable to the Pt, and home health services. The family stated they wanted to speak to DR. Musa concerning and urgent matter. ISAAC inquired about the matter and was told it was concerning the pet cat had . The family wanted direction on telling the Pt about the issue. Barby also want information on addressing the Pt's emotional issues. ISAAC informed that the goal for the Pt was taking her medications and eating to gain weight. Also that follow up outpt services will be necessary for the Pt's continued recovery. I informed the family I would let Dr. Musa know they would like a phone call. ISAAC did contact Dr. Musa about the families request.
--- NOTE | 2020-09-06 16:20 | NUR ---
ISAAC, Dr. Musa, Marilyn Mills, Alessia Heath participated in a phone call to Pt's , Bennie. Bennie was again given the Pt's goal to be discharged and and update on the Pt's progress. Bennie inquired if he should tell Pt about the cat dying. Dr. Musa's advice was not to inform the Pt and to focus on the Pt's treatment goals. Bennie seemed conflicted due to not wanting to wait to tell the Pt and fear of Pt;'s reaction if told after discharge. Marilyn Mills provided emotional support and brief education on grief. Bennie was assured staff is avaliable to the Pt to assist with emotional support if he decides to tell Pt while on [facility]. ISAAC will continue to follow up
--- NOTE | 2020-09-06 16:26 | NUR ---
SW spoke with Pt concerning discharge planning. Pt wants to be discharged as soon as possbible even if she does not reach her weight goals. SW encouraged the Pt to talk to Dr. Musa about this. Sw talked to Pt about PHP and IHP. Pt did state she would be willing to attend a program. Pt verbalized understanding the consquences of not taking her medications, not eating, and not following up with outpt services. Pt stated she understood those could lead to another inpt [facility] stay. SW will continue to follow up
[2020-09-06 19:38] VITALS: BP 101/63
--- NOTE | 2020-09-07 04:39 | NUR ---
Assumed care for patient at 1900. Pt A&Ox4. Pt has remained in her room majority of the evening. Pt presents with a flat, depressed affect. Pt reports depression and anxiety, stating that they have both improved some, but does not numerically rate. Pt denies SI/HI. Pt denies any pain. Pt is cooperative and compliant with nursing assessment and HS medications. Pt takes medications whole with water. Pt report she had BM on 09/06/20. Pt reports her appetite continues to improve. Pt is ambulatory and steady on feet. Pt is on 12 checks for safety. Will continue to monitor for safety and any changes in mood/behavior per hospital/unit protocol.
--- NOTE | 2020-09-07 06:40 | NUR ---
Pt standing weight obtained this AM and was 104.1
[2020-09-07 08:47] VITALS: BP 93/63
--- NOTE | 2020-09-07 17:59 | NUR ---
Alert and orientated X4. Focused on discharge. States she is feeling better mentally and feels safe returning home. Wants to talk with Dr. Musa regarding discharge plan--Dr. Musa and Esther Mcneill SW notified. Denies SI/HI. Breath sounds clear. Reg HR auscultated. Color pink with brisk capillary refill and palpable peripheral pulses. Independent with voiding. Active bowel sounds over soft, flat abdomen. Reports BM this AM. Regular steady gait without assistive devices. Focused on eating majority of meals. Currently finishing dinner without s/o distress.
[2020-09-07 19:19] VITALS: BP 104/63
--- NOTE | 2020-09-08 06:12 | NUR ---
09-07-20 CARE TRANSFERRED 0. PT AAOX3, VSS, RR EVEN AND NONLABORED ON RA. PT REMAINED CALM AND COOPERATIVE THROUGHOUT NURSING ASSESSMENT. DURING MEDICATION ADMIN. PT HAD NO DIFFICULTIES. LATER PT AWOKE AND REPORTED FEELING ANXIOUS AND PRN MEDICATION ADMIN. ZERO S/S OF ACUTE DISTRESS NOTED, PT WILL CONTINUE TO BE MONITOR PER [facility].
[2020-09-08 08:57] VITALS: BP 108/70
--- NOTE | 2020-09-08 12:23 | NUR ---
Alert and orientated X4. Denies SI/HI. Focused on discharge. Up ambulating in halls without s/o distress. Breath sounds clear. Reg HR auscultated. Color pink with brisk capillary refill and palpable peripheral pulses. Independent with voiding. Active bowel sounds over soft, flat abdomen. Participating in groups. Spent majority of AM in day room with peers. Currently eating lunch without s/o distress.
--- NOTE | 2020-09-08 15:44 | NUR ---
RT Progress Note- Shellie continues to show improvement on the unit and has remained active in both the milieu and therapeutic groups. Her affect has brightened and she is speaking at a more audible level. Over the last few days she has been hyper focused on discharge and her contributions to group discussions have held this theme. EMERGENCY MEDICAL DISPATCHER will continue to encourage this participation and assisting her towards her goals.
[2020-09-08 19:20] VITALS: BP 100/60
[2020-09-08 20:20] VITALS: BP 100/60
--- NOTE | 2020-09-09 04:58 | NUR ---
PATIENT HAS BEEN A/0X3-4 TONIGHT. SHE HAS BEEN IN GOOD SPIRITS. SHE DENIES PAIN. SHE TOOK HER MEDS WHOLE WITH WATER. SHE DENIES SI/HI/AVH. SHE IS STRONGER AND HER GAIT IS MORE STEADY. PATIENT WORKING TO GET TO 110 LBS SO SHE CAN GO HOME. SHE SPOKE WITH HER BY PHONE REGGIE. SHE GAVE ME HER BREAKFAST ORDER FOR THIS MORNING AND I WILL CALL IT IN. SHE IS WANTING TO KNOW IF SHE CAN SUBSTITUTE FOOD IN PLACE OF HER GLUCERNA AND MAGIC CUP SUPPLEMENTS. SHE IS NOT WANTING TO CONTINUE TAKING THOSE. PATIENT HAS BEEN CALM AND COOPERATIVE AND APPROPRIATE TONIGHT. SEEMS STRONGER AND SEEMS TO BE THINKING MORE CLEARLY. LESS FLAT AFFECT TO HER FACE. SHE IS SMILING MORE. ROUTINE ROUNDS TO ASSESS SAFETY AND STATUS OF PATIENT. CONTINUING TO MONITOR.
--- NOTE | 2020-09-09 06:35 | NUR ---
PT AWOKE AT 0530 TO REVISE HER BREAKFAST ORDER. PATIENT REQUESTS VEGGIE AND CHEESE EGG SCRAMBLE, OATMEAL, MILK2%, AND ONE TURKEY SAUSAGE. THIS WAS ORDERED BY PHONE TO THE DIETARY BY THIS NURSE.
[2020-09-09 08:34] VITALS: BP 105/55
--- NOTE | 2020-09-09 09:10 | NUR ---
PT SITTING IN DINING ROOM AFTER EATING BREAKFAST. PT ATTENDED GROUP. PT TOOK MEDS WITHOUT ANY ISSUES. PT ASKING ABOUT IF BED SCALE IS DIFFERENT THAT STANDING SCALE. SHE STATED THAT SHE WAS 104 PDS BEFORE AND THIS AM 102.5. PT STATED SHE DIDN'T LIKE THE MAGIC CUP OR SUPPLEMENTS DUE TO ITS SO SWEET TASTEING. SHE SAID DR. LOPEZ SAID SHE COULD SUPPLEMENT SOMETHING WITH PROTIEN.
[2020-09-09 19:21] VITALS: BP 107/64
--- NOTE | 2020-09-10 05:58 | NUR ---
Asusmed pt's care beginning pf this pm shift. Pt alert and oriented. Withdrawn affect. Pt was in her room at time of assessment. Voiced some anxiety and depression, but acknowledged that they were much better now than when she came in. Pt took meds without issues. Pt's called beginning of shift snd talked with pt. Pt slept well this shift this shift. Continues to sleep in her room. No overnight incident. Will continue to monitor.
[2020-09-10 08:09] VITALS: BP 81/54
--- NOTE | 2020-09-10 08:10 | NUR ---
PT AWAKE AT THIS TIME. PT WALKING AROUND WITHOUT WALKER. PT LUNGS CLEAR. PT WEARS MASK WHEN OUT IN COMMON AREA. PT WEIGHED THIS AM WITH STANDING SCALE AND IS 104.4. PT SPEACH IS MORE FLUENT. PT TOOK MEDS WHOLE WITHOUT ANY ISSUES.
[2020-09-10 08:30] VITALS: BP 81/54
[2020-09-10 15:49] VITALS: BP 110/69
--- NOTE | 2020-09-10 15:49 | NUR ---
RECHECKED PT BP DUE TO THIS AM LOW 81/54, USED A SMALL CUFF ON PT ARM TO LEFT ARM AND BP 110/69, UNKNOWN IF THIS AM BP WAS ON LARGER CUFF. PT BENEFITS WITH SMALL CUFF FOR MORE ACCURATE BP.
--- NOTE | 2020-09-10 16:40 | NUR ---
SW met with patient while patient was eating dinner. Patient reported she was eating fine. Patient stated she eats slow but was eating enough.
[2020-09-10 19:33] VITALS: BP 116/75
--- NOTE | 2020-09-11 04:02 | NUR ---
Assumed care for pt at 1900. Pt in room resting in bed at time of shift change. Pt has remained in room throughout entire evening/shift. Pt is A&Ox4. Pt was compliant with nursing assessment and scheduled medications. Pt did not have any PRN medications. Pt denies having any pain at time of assessment. Pt reports appetite continues to improve. Pt remains a daily standing weight. Pt wanting to get a weight down this evening versus in morning; standing weight this evening was 105.6 lbs. Weight in AM was 105.1 lbs. Pt reported continued depression and anxiety, but does not rate it. Pt denies thoughts of SI/HI. Pt rested with eyes closed and appeared to be sleepoing throughout night without difficulty. Pt awake at 0430 and stated she slept well during night. Pt presents with a quiet demeanor and is pleasant, calm, and cooperative. Pt is on 12 min rounds for safety. Will continue to monitor for any changes in mood/behavior and for safety.
[2020-09-11 09:41] VITALS: BP 102/57
--- NOTE | 2020-09-11 15:18 | NUR ---
CALM AND COOPERATIVE ATTENDING ALL SCHEDULED GROUPS/ACTIVITIES,STRUCTURES FREE TIME PACING IN HALLWAys or sitting quietlyt in dayroom-minimal peer interactions-constricted affect-delayed verbal responses. appetite is better-eating [id number] pervent meals
[2020-09-11 19:58] VITALS: BP 112/74
--- NOTE | 2020-09-12 02:51 | NUR ---
ASSESSMENT: PT REMAIN ALERT AND ORIENT TIMES FOUR. UP AD KIARA IN THE ROOM MOSTLY AND CORRIDOR SOME WHAT. VSS, AFEBILE. DENIES PAIN, SOB AND N/V. PT WILL BE WEIGHED IN THE AM FOR DAILY WT. TALKED TO SISTER THIS EVENING. REMAIN COOPERATIVE AND PLEASANT. SLOW BUT CONTINUAL PROGRESS TOWARDS DC GOALS, WILL CONTINUE TO MONITOR.
[2020-09-12 05:45] LABS: HEMATOCRIT 35.9 % (37.0-47.0); HEMOGLOBIN 12.1 gm/dL (12.0-15.0); MCH 31.9 pg (26.0-34.0); MCHC 33.7 g/dL (28.0-37.0); MCV 94.7 fL (80.0-100.0); RBC 3.79 mil/uL (4.20-5.00); RDW 13.2 % (10.5-14.5); WBC 4.4 thou/uL (4.0-11.0)
[2020-09-12 06:12] LABS: CALCIUM 8.7 mg/dL (8.5-10.1); CREATININE 0.6 mg/dL (0.6-1.0); POTASSIUM 3.9 mmol/L (3.5-5.1)
[2020-09-12 08:46] VITALS: BP 105/67
--- NOTE | 2020-09-12 10:13 | NUR ---
Alert and orientated X4. States she doesn't know how she is doing because she just woke up. Wants to know if can bring her nuts to eat from home. Denies SI/HI. Up ambulating with steady gait without assistive devices. Breath sounds clear. Reg HR auscultated. Color pink with brisk capillary refill and palpable peripheral pulses. No edema noted. Independent with voiding. Active bowel sounds over soft, flat abdomen. Reports BM yesterday. Actively participating in AM group. No s/o distress.
[2020-09-12 19:23] VITALS: BP 108/70
[2020-09-13 00:44] VITALS: BP 108/70
[2020-09-13 10:29] VITALS: BP 99/65
--- NOTE | 2020-09-13 17:13 | NUR ---
ISAAC met with Pt 1 on in Pt's room. Pt had concerns about a phone call with [employer] security administration on Friday. SW assured Pt that she would be able to make a phone call as necessary. Pt also had concerns about discharge. SW and Pt talked about PT's progress, insight and motivation. Pt became tearful stating " I don't feel I will ever get out". SW reassusred Pt about works toward goals set and that discharge is likely soon. ISAAC talked to Pt about PHP after discharge and answered PT's question concerning the program. Pt had no other questions or concerns at this time. ISAAC has scheduled an intake with [facility] for PHP for 09/16/2019 @ 11am. Pt will be informed prior to d/c
--- NOTE | 2020-09-13 17:42 | NUR ---
Assumed pt care at 0700. pt was alert and oriented x4. pt was calm and co-operative with care. pt denies SI/HI. Pt denies pain. pt took medication whole without difficulties. Assessments completed and VSS. pt ambulates with steady gaits without assistive device. pt is continent bowel and bladder. pt participated in groups. Will continue to monitor.
[2020-09-13 19:35] VITALS: BP 110/70
[2020-09-13 22:31] VITALS: BP 110/70
--- NOTE | 2020-09-14 02:29 | NUR ---
Assumed care for pt at 1900. Pt stayed in her room throughout the evening. Pt is calm and cooperative with nursing assessment and medication compliant. Pt takes meds whole with thin liquids. Pt denies pain. Pt VS are stable, but does have slightly elevated temperature at 99.5 F. Pt offered PRN Tylenol 650 mg for fever. Pt declined, stating she did not feel bad and did not think she had a fever. Pt reports her appetite continues to get better. Pt continues on daily standing weights to monitor weight gain. Pt reports depression is zero and that she has some anxiety, but that the things which were going on prior to being hospitalized that where triggering her anxiety and depression, have gotten taken care of so that it is not all her. Pt denies SI/HI. Pt is A&O x 3. LBM on 09/13/20. Pt is independent with ADLs. Pt is on 12 minute checks for safety. Will continue to monitor for changes in mood/behavior and safety per unit and hospital protocol.
[2020-09-14 09:37] VITALS: BP 105/69
--- NOTE | 2020-09-14 12:47 | NUR ---
Assumed pt care at 0700. pt was alert and oriented x4. Assessment completed, VSS. pt took meds whole without difficulties. Pt ambulates with a steady gait. PT goal was to attend groups. pt achieved her goals.pt denies SI/HI. PT DENIES PAIN. There is no sign of distress noted at this time. Pt was calm and co-operative with care and meds admin. pt reported a BM DURING ASSESSMENT. PT ATE MOST OF HER MEALS. WILL CONTINUE TO MONITOR.
--- NOTE | 2020-09-14 15:34 | NUR ---
ISAAC called Pt's , Bennie, concerning the Pt's discharge. Bennie immidiatey became loud and yelling, " NO NO NO NO, You all are doing what [facility] did?. Why didn't you all call and tell me earlier". ISAAC encouraged Bennie to calm down and to be apart of the Pt's discharge or SW could end the call and call him back after he calmed down. Bennie calmed down and wanted information on the Pt's discharge plan. ISAAC informed of the Pt's appointment for PHP with [facility]. Bennie was unhappy with this facility and asked about the [facility]. ISAAC expalained [facility] does not offer PHP for adults. Bennie scottdemetrio was SW sure [facility] did not offer the service. ISAAC offered to give him the contact information so he can verify. Bennie declined. Bennie asked what [facility] offers. ISAAC provided education on [facility] and [facility]. ISAAC also offered education needs of the Pt after leaving inpatient. Bennie then want guidance on tell the Pt about the cat dying. ISAAC reminded Bennie of the conversation from last week concerning the subject and advised him to tell the Pt about the cat. ISAAC educated again about grief and that staff is avaliable to assist the Pt through this emotional time. Bennie wanted someone with the Pt at the time he was telling the PT about the cat. ISAAC again informed staff is avaliable to assist Pt as needed. Bennie asked to be transfered to nurses station to talk to the Pt. ISAAC will continue to follow
[2020-09-14 19:08] VITALS: BP 111/68
--- NOTE | 2020-09-15 02:32 | NUR ---
ASSESSMENT: PT REMAIN ALERT AND ORIENT TIMES THREE. UP IN ROOM/CORRIDOR AD KIARA. PT IS SCHEDULED TO DC TO HOME AT 1100 TODAY. PT BEING QUIET AND TO HERSELF. LET'S NEEDS BE KNOWN APPROPRIATELY. PT SPOKE WITH SISTER THIS EVENING. DENIES PAIN, SOB AND N/V. VSS, AFEBRILE. PEANUTS FOR PT IS STORED IN THE MED ROOM. GOOD PROGRESS TOWARDS DC GOALS, WILL CONTINUE TO MONITOR.
[2020-09-15 08:25] VITALS: BP 126/68
[2020-09-15] MEDS ORDERED: CHLORPROMAZINE25 M1 PO (10:09)
[2020-09-15] MEDS ORDERED: LORAZEPAM 1 MG T1 MG PO (10:09)
[2020-09-15 10:48] VITALS: BP 126/68
[2020-09-15 11:23] VITALS: BP 126/68
--- NOTE | 2020-09-15 11:42 | NUR ---
SW provided Pt with SW discharge summary and placed a copy in the chart
--- NOTE | 2020-09-15 12:46 | NUR ---
1045 RESUMMED CARE FROM OVERNIGHT SHIFT THIS AM, PATIENT IN ROOM QUIET. PATIENT CAME TO DAY ROOM ATE BREAKFAST TOOK MEDICATION WITHOUT INCIDENCE. PATIENT DENIES SI/HI/AH/VH AT PRESENT PATIENTS ABDOMEN SOFT BOWEL SOUNDS PRESENT LUNGS CLEAR. PATIENT IS CALM COOPERATIVE PATIENT IS DISCHARGING TO HOME TODAY. PATIENT DISCHARGED AT 11:05 WITH AFTERCARE INFORMATION AND BELONGINGS. PATIENTS WAS HAPPY TO SEE PATIENT AND HUGGED HER AND HAD SOME TEARS. PATIENT THANKED US FOR HER CARE I TOLD PATIENT IF SHE NEEDS US AGAIN ALL SHE HAS TO DO IS CALL US.
== END 2020-09-15 11:05 | disposition home or self-care (01) | DRG 885 ==
LOC: SBH 21:39
PROVIDERS: Hospitalist; Nurse Practitioner Family; ADMIT Psychiatry & Neurology Psychiatry; ATTEND Psychiatry & Neurology Psychiatry
DX: F20.2 Catatonic schizophrenia (principal); Z68.1 Body mass index [BMI] 19.9 or less, adult; E87.0 Hyperosmolality and hypernatremia; F29 Unspecified psychosis not due to a substance or known physiological condition; F39 Unspecified mood [affective] disorder; F32.9 Major depressive disorder, single episode, unspecified; R63.0 Anorexia; F41.1 Generalized anxiety disorder; Z20.822 Contact with and (suspected) exposure to COVID-19; Z88.1 Allergy status to other antibiotic agents; Z79.899 Other long term (current) drug therapy; Z85.3 Personal history of malignant neoplasm of breast; Z90.12 Acquired absence of left breast and nipple
CPT/HCPCS: 10880

== ENCOUNTER 2020-10-23 11:49 | Emergency (ER) | payer OTHER ==
[~2020-10-23] VITALS: Ht 157.5 cm; Wt 54.4 kg
[~2020-10-23 11:49] MED LIST changes: +CHLORPROMAZINE25 M1 PO; +LORAZEPAM 1 MG T1 MG PO
[2020-10-23 20:00] VITALS: BP 105/64
== END 2020-10-23 20:49 ==
LOC: ER 11:49
DX: F91.9 Conduct disorder, unspecified (principal); Z79.899 Other long term (current) drug therapy; Z88.1 Allergy status to other antibiotic agents; Z20.822 Contact with and (suspected) exposure to COVID-19

== ENCOUNTER 2020-10-23 16:08 | Inpatient (IN) | payer OTHER ==
[~2020-10-23] VITALS: Ht 167.6 cm; Wt 45.4 kg
--- NOTE | 2020-10-24 03:43 | NUR ---
Arrived on the floor escorted by x1 staff from the [facility] Emergency Department @ 2100, via w/c, transferred to bed 528 B. Covid 19 screen negative on 10/23/20. Referred by her spouse Bennie Rachel who is her power of energy attorney tele# [phone]. Allergies to Ciprofloxacin, Zithromax, Keflex. Calm, with a flat affect, Oriented x3, giving name, , and current location as [place]. Reports that she remembers being here. Recent history of hospitalization at and in August 2020 here at [facility]. Current Psychiatric problems are not eating or drinking, increased paranoia, has stopped taking meds on 09/22, depression, selected mutism, whimpering, crying, staring. History of hoarding, poor insight and judgment. Regular diet, walks independently, continent, wears brief. Quiet and answers questions wiht one work answers. HRRR, Lungs CTA, ABD Nx4Q. Reports had a bm today (10/23) or yesterday (10/22). Reports last ate a sandwich in the ER @ noon. Provided with milk and saltine crackers that patient indicated she would like to eat. Noted to have not drank or eaten either. Regular diet. Skin is intact. Pedal pulses present bilat, feet warm and skin dry. Toe nail on Great toe bilat thick and misformed. Hx of cancer and has a Left mastectomy and Right lumpectomy. Cries during assessment, when asked if she was sad, she covers her face with her hand. Refused [id number] p.o. offered for insomnia. Awake for a while, then sleeps, waking @ about 0300 to toilet, reports has a headache and offered Tylenol 650, which she took with a 6oz cup of water and saltine crackers. Does not answer most of the assessment questions. Ambulates with a steady gait. Up ad arielle. Bed in low position, bed alarm set, will continue to monitor as per unit protocol for safety and comfort.
[2020-10-24 07:00] VITALS: BP 102/67
[2020-10-24 08:21] VITALS: BP 128/79
--- NOTE | 2020-10-24 18:50 | NUR ---
Alert and orientated X 4. Flat, depressed affect. Denies SI/HI. States she is here d/t feeling overwhelmed with her care. Breath sounds clear. Reg HR auscultated. Color pink with brisk capillary refill and palpable peripheral pulses. No edema noted. Independent with voiding. Active bowel sounds over soft, flat abdomen. States she had BM yesterday. Ambulating around unit with regular, steady gait. Currently in day room watching TV with peers without s/o distress.
[2020-10-24 20:05] VITALS: BP 105/67
--- NOTE | 2020-10-24 21:44 | H ---
[facility] [place] [address] HISTORY AND PHYSICAL Name: JENNIE SIFUENTES Room #: 528B-A ADM IN M.R.#: [id number] Admission: 10/23/20 Attend Phys: Drew Narvaez DO Discharge: Date of : 53 Report #: [id number] THIS REPORT FOR: cc: FAM - No family physician/PCP FAM - No family physician/PCP Drew Narvaez DO ~ DATE OF SERVICE: 10/24/2020 INPATIENT PSYCHIATRIC EVALUATION ATTENDING PHYSICIAN: Drew Narvaez DO. MUD WORKER: Gloria Diggs and Js Scott MD REASON FOR ADMISSION: Went off her medications on 09/22 and steadily declined, not eating well, crying throughout the day, standing for long periods of time, staring and paranoid. SOURCES OF INFORMATION: Records from the [facility] ED where the patient was easily talking, interview with the patient, chart review. HISTORY OF PRESENT ILLNESS: A 65-year-old female who had been admitted earlier this year on the [facility]. The reports that the patient was at [facility], there for about 22 days. After coming home, she stopped taking her medications since 09/22. He reports she did well for about 5 days and she began acting "weird." He states she is not able to leave the home. She is not eating well. She sleeps okay. Some paranoid ideation related to people trying to harm her. She refused to take medications from her , he is questioning home health nursing thinking she responds better to healthcare personnel than him. He states that she has an outpatient appointment on 11/01/2020. He reports that she has been crying for days and he does not know what to do. The patient lay on the gurney with her eyes closed throughout the ED blowing weasand's evaluation, did not speak. reports calming with Ativan she received in [facility] ED no medical concerns from her . PSYCHIATRIC HISTORY: Two recent hospitalizations at [facility] in [facility] and one at [facility]. The patient has a history of hoarding. is DPOA. PAST MEDICAL HISTORY: History of breast cancer with left mastectomy. PAST SURGICAL HISTORY: Left mastectomy, right lumpectomy. SUBSTANCE ABUSE HISTORY: No smoking including smokeless tobacco. No alcohol [facility] [address] [place] [address] HISTORY AND PHYSICAL Name: JENNIE SIFUENTES Room #: 528B-A [facility] IN [facility].#: [id number] Admission: 10/23/20 Attend Phys: Drew Narvaez DO Discharge: Date of : 53 Report #: [id number] use, no recreational drug use. FAMILY HISTORY: Includes coronary artery disease in her father and brother, premature heart disease in her brother, coronary artery disease in paternal uncle, coronary artery disease in her brother. ALLERGIES: Include CIPROFLOXACIN, AZITHROMYCIN, CEPHALEXIN. SOCIAL HISTORY: , lives with spouse. ADDITIONAL MEDICAL HISTORY: Includes slight dyspnea with exercise, history of chest pain. LABORATORY DATA: EKG was done at , which showed sinus rhythm, heart rate 68. Right atrial enlargement, QTc was 434, QRS was 107 milliseconds. DPOA for healthcare was included with records. REVIEW OF SYSTEMS: From ED: CONSTITUTIONAL: Negative for fever. HEENT: Negative. EYES: Negative for visual disturbances. RESPIRATORY: Negative for shortness of breath. CARDIOVASCULAR: Negative for chest pain. GASTROINTESTINAL: Negative for abdominal pain, diarrhea, nausea or vomiting. GENITOURINARY: Negative for dysuria. MUSCULOSKELETAL: Negative for back pain. SKIN: Negative for rash. NEUROLOGICAL: Negative for headaches. PSYCHIATRIC: Positive for agitation. Negative for self-injury. ADDITIONAL SURGICAL HISTORY: Includes carpal tunnel release. LABORATORY DATA: Labs from [facility], white count 4.2, H and H 14.4 and 42.0, platelet count 172. Sodium 149, potassium 3.9, chloride 113, glucose 92, BUN 34, creatinine 0.72, calcium 9.9, total protein 6.8, total bilirubin 0.5, albumin 4.2, alkaline phosphatase 39, AST 18, CO2 of 25, ALT 15, anion gap 11. EGFR greater than 60. Urinalysis showed 1+ protein, 1+ ketones, white blood cell count 2-10, rbc's 0-2. COVID-19 PCR now does not say negative, but I hope it is. TSH 1.12. Alcohol level negative. Acetaminophen negative. Salicylate level negative. Other substances including narcotics negative on drug screen. PHYSICAL EXAMINATION: VITAL SIGNS: Today, here at [facility], temperature 36.4, pulse 63, respirations 18, BP 128/79, O2 sat 99%. [facility] [address] [address] HISTORY AND PHYSICAL Name: BEARJENNIE Room #: 528B-A [facility] IN M.R.#: [id number] Admission: 10/23/20 Attend Phys: Drew Narvaez DO Discharge: Date of : 53 Report #: [id number] MENTAL STATUS EXAMINATION: Bit disheveled, in hospital gown, appearing not bathed. This is a well-developed, thin female. BMI 17.1, so borderline underweight. Weight 48.081 kilos. Attention intact. Concentration limited. Speech slow, soft. Thought process linear and limited. Thought content, poverty of thought. No psychomotor agitation, slight psychomotor retardation. Mood and affect constricted, congruent. Denied SI or HI. Denied hopelessness, helplessness. Memory not formally tested. Insight limited. Judgment limited. Fund of knowledge, no greater than average. FORMULATION: A 65-year-old female [facility] ED with a history of recent psychiatric hospitalizations including here at [facility] when she was discharged 09/15/2020 believe her diagnosis was acute psychosis and depression. She was discharged on 12.5 mg oral daily of Thorazine and lorazepam 1 mg 3 times a day, mirtazapine was discontinued. DIAGNOSES: At this time, unspecified psychosis, rule out major neurocognitive disorder. She is also referred to [facility], I am not clear if she followed up or not: PLAN: Evaluate, stabilize, obtain collateral. With regard to the patient's current medications, famotidine 20 mg daily, trazodone 50 mg p.o. at bedtime for sleep. Other medications, really none ordered. Given the patient's noncompliance, we will do a SLUMS exam and screening of her functioning. Time spent on this case about 45 minutes. I will attempt to make contact with her today, so likely spend over an hour. ESTIMATED LENGTH OF STAY: 10-14 days. <ELECTRONICALLY SIGNED> By: Drew Narvaez DO 10/24/20 [id number] Drew Narvaez DO /nt
--- NOTE | 2020-10-25 04:54 | NUR ---
PT BEEN IN HER ROOM MOST OF THE NIGHT,SLEEPING ON AND OFF.PT DENIES ANY ACUTE DISTRESS.PT WAS OFFERED SLEEPING AID BUT SHE DECLINED IT.AMBULATES W/STEADY GAIT.VSS.INDEPENDENT WITH TOILET.ASSESSMENT COMPLETED DOCUMENTED.WILL CONT TO MONITOR PER CURRENT POC.
[2020-10-25 10:17] VITALS: BP 98/65
--- NOTE | 2020-10-25 16:10 | NUR ---
Assumed pt care at 0700. pt was alert and oriented x4. Assessments completed, VSS. APPEARS DEPRESSED AND WITHDRAWN. Denies si/hi, denies pain. ambulates with a steady gait. toilets self. No sign of acute distress noted. at this time pt is watching TV in the day room. will continue to monitor.
[2020-10-25 19:42] VITALS: BP 114/81
--- NOTE | 2020-10-25 22:46 | NUR ---
PT SITTING IN DAY AREA. HEAD BENT OVER MOST OF THE TIME.FLAT AFFECT. I PULLED CHAIR CLOSE AND TRIED CONVERSING WITH HER, SHE GAVE ME NO EYE CONTACT-SHE PULLS AWAY EVEN WITH A LIGHT SHOULDER TOUCH. SHE SAYS NOTHING. SHE REFUSED HS MEDICATIONS. ANOTHER RN TRIED WITH NO SUCCESS EITHER.MS SCHNEIDER AMBULATES WELL PER REPORT.SHE DOES NOT APPEAR TO BE IN ANY DISTRESS AT THIS TIME.
[2020-10-26 09:29] VITALS: BP 105/79
--- NOTE | 2020-10-26 12:55 | NUR ---
Assumed pt care at 0700. pt was alert and oriented x4. pt had a flat affect and appeared depressed. was unco-operative with care. pt refused her medication. DR Kaufman WAS INFORMED AND HE SPOKE WITH PT. PT STILL REFUSED TO TAKE MEDS. IM SHOT OF 1mg Ativan was ordered and administered. pt ambulates with a steady GAIT. DENIES SI/HI. THERE IS NO C/O OF PAIN AT THIS TIME. AT THIS TIME THERE NO SIGN OF ACUTE DISTRESS. will continue to monitor pt.
[2020-10-26 19:55] VITALS: BP 105/70
[2020-10-27 04:08] VITALS: BP 105/70
--- NOTE | 2020-10-27 04:14 | NUR ---
Assumed care on 10/26/20 @ 1900, seated in the day room in a chair. Drowsy and has eyes closed and chin to chest. Could not interest patient in talking to her on the phone. Explained to that she is drowsy but would not agree to talk. Awakened to give medication, which patient accepted whole with water. Retired to bed @ . Bed in low position, bed alarm set, Will continue to monitor as per unit protocol for safety and comfort.
[2020-10-27 09:45] VITALS: BP 104/71
--- NOTE | 2020-10-27 14:51 | NUR ---
Alert and orientated X4. Flat affect. Attending groups but more listening instead of participating. Denies SI/HI. Breath sounds clear. Reg HR auscultated. Color pink with brisk capillary refill and palpable peripheral pulses. No edema. Independent with voiding. Active bowel sounds over soft, flat abdomen. Ambulates around unit with regular, steady gait.
--- NOTE | 2020-10-27 20:26 | NUR ---
PT LYING IN BED AND RESTING. PAMELA CALLED TO TALK TO HER, PT NEEDED AWOKE AT THIS TIME FOR THE PHONE. PT UP TO BATHROOM AFTER AWOKE FROM PHONE CALL AND LAID THE PHONE ON THE BED. PT TOOK MEDS WITHOUT ANY ISSUES. PT DIDN'T HAVE ANY CONCERNS.
[2020-10-27 20:48] VITALS: BP 105/67
[2020-10-27 21:00] VITALS: BP 105/67
--- NOTE | 2020-10-27 21:50 | NUR ---
PT CALLED AND SAID SHE SEEM GROGGY AND WANTED TO KNOW WHAT MEDS SHE WAS ON THAT WOULD MAKE HER SLEEPY. HE STATED THAT AT HOME SHE DOESN'T HAVE ANY PROBLEMS WITH HER SLEEPING AND IF SHE CAN SLEEP WHY GIVE HER MEDICATION THAT SHE DOESN'T NEED. HE SAID SHE WAS HOME A MONTH AND STOPPED TAKING MEDS. HE WANTS TO TALK TO DR. HE SAID HE WANTS PT TO CALL HIM DURING THE DAY WHEN SHE IS DONE WITH GROUP OR MEALS.
--- NOTE | 2020-10-28 05:10 | NUR ---
PT STILL RESTING AFTER GOING TO BED. NO COMPLAINTS FROM PT.
[2020-10-28 08:25] VITALS: BP 98/60
--- NOTE | 2020-10-28 18:44 | NUR ---
Alert and orientated X4. Flat, depressed affect. Denies SI/HI. Gave msg to call but did not acknowledge that she would call. Breath sounds clear. Reg HR auscultated. Color pink with brisk capillary refill and palpable peripheral pulses. Independent with voiding. Hypoactive bowel sounds over soft, flat abdomen. Declines laxative. Small abrasion between pinky and forth toe, cleaned with NS and dressed with gauze.
--- NOTE | 2020-10-28 20:00 | NUR ---
PT DENNIES CALLED AND WANTING TO TALK TO HER. PT IN ROOM RESTING IN BED. PT HAD TO BE AWAKEN TO TALK ON PHONE.
[2020-10-28 20:04] VITALS: BP 95/62
[2020-10-28 21:10] VITALS: BP 95/62
--- NOTE | 2020-10-28 22:28 | NUR ---
WENT TO ROOM TO GIVE MEDS. PT SLEEPING AT THIS TIME AND NOT WAKING UP FOR MEDS. GOT PT FRESH WATER TO DRINK. PT USUALLY UP AD KIARA WITH STEADY GAIT.
--- NOTE | 2020-10-29 04:56 | NUR ---
PT HAS BEEN RESTING ALL NIGHT IN BED. NO COMPLAINTS AT THIS TIME.
[2020-10-29 09:53] VITALS: BP 93/65
[2020-10-29 11:36] VITALS: BP 93/65
--- NOTE | 2020-10-29 11:40 | NUR ---
ASSUMED CARE AT 0700 THIS MORNING. SHE GOT OUT OF BED, DRESSED AND CAME INTO THE DINING ROOM FOR BREAKFAST. INITIALLY SHE WOULD NOT TAKE HER MORNING MEDICATION. SHE STATED HE HAD TO WAIT 30 MINUTES UNTIL AFTER BREAKFAST. THIS RN EXPLAINED THINGS TO HER, SHE TOOK THE MEDICATON. SHE IS CALM, SITTING WITH A MASK ON HER FACE. NO NEW PROBLEMS NOTED OR VOICED.
[2020-10-29 20:00] VITALS: BP 108/71
[2020-10-29 20:07] VITALS: BP 108/71
--- NOTE | 2020-10-30 04:37 | NUR ---
PATIENT HAS BEEN IN BED MOST OF SHIFT. SHE DID COME OUT OF ROOM TO RETURN HER 'S PHONE CALL AND SPOKE TO HIM IN THE HALLWAY ON THE PHONE. SHE TOOK HER MEDS WHOLE WITH WATER. SHE DID REFUSE HS SNACK TONIGHT. SHE IS A/0X3. SHE IS CONTINENT. SHE DENIES PAIN/SI/HI/AVH. SHE WENT BACK TO BED AFTER SPEAKING WITH . SHE DOES NOT SPEAK MUCH UNLESS SPOKEN TO AND STAYS TO HERSELF. BED IN LOW POSITION. PATIENT AMBULATES WITHOUT ISSUE. ROUTINE ROUNDS TO ASSESS SAFETY AND STATUS OF PATIENT.
--- NOTE | 2020-10-30 10:54 | NUR ---
RT Progress Note- Shellie has been present in both the milieu and all recreation therapy groups since her admission. Although present, she puts forth minimal effort and remains guarded with a depressed affect. With frequent encouragement, pt will display minimal participation speaking in an extremely soft voice, making it extremely difficult for peers or therapist to understand her. ASSISTANT PROFESSOR OF ECONOMICS will continue to encourage pts participation as well as improved mood and activity.
--- NOTE | 2020-10-30 16:26 | NUR ---
FLAT AFFECT-DELAYED VERBAL RESPONSES NOTED DURING 1;1 INTERACTION WITH THIS RN. ATTENDS SCHEDULED GROUPS WITH PROMPTING. DID REQUEST CHANGES TO [facility] WHAT WAS BEING SERVED WAS "TOO MUCH"DENIES SI/SH. NO NOTED INTERACTION WITH PEERS. DID EAT 100 PERCEBT OF LUNCH AND 95 PERCENT OF BREAKFAST.SUSPICIOUS OF MEDS ASKING TO LOOK AT PACKAGE TO VERIFY NAME AND DOSE.
[2020-10-30 19:41] VITALS: BP 92/55
[2020-10-30 21:10] VITALS: BP 92/55
--- NOTE | 2020-10-31 04:34 | NUR ---
PATIENT STAYED IN ROOM ALL NIGHT. SHE REFUSED HS SNACK. SHE DID GET UP AND ASKED TO USE THE PHONE TO CALL HER . SHE RETURNED THE PHONE WHEN FINISHED AND WENT BACK TO BED. SHE IS VERY PARTICULAR ABOUT HER MEDS AND INSISTS ON PUTTING HER GLASSES ON AND LOOKING AT THE PILLS AND THE WRAPPERS TO MAKE SURE SHE IS GETTING WHAT SHE THINKS SHE SHOULD BE GETTING. SHE HAS BEEN SAD BUT MORE ALERT TONIGHT AND INITIATING REQUESTS. DENIES PAIN SI/HI/AVH. A/0X3. WALKS WITH SLOW STEADY GAIT. RESPONSES A LITTLE QUICKER WHEN ANSWERING QUESTIONS THAN SHE WAS LAST NIGHT. ROUTINE ROUNDS TO ASSESS SAFETY AND STATUS OF PATIENT. BED IN LOW POSITION. SHE HAS BEEN CALM AND COOPERATIVE. NO PRN'S GIVEN. CONTINUING TO MONITOR.
[2020-10-31 07:55] VITALS: BP 95/60
[2020-10-31 08:40] VITALS: BP 95/60
--- NOTE | 2020-10-31 08:45 | NUR ---
PT WITHDRAWN THIS AM WHEN TALKING TO HER. PT DID TAKE MED THIS AM. PT USING MASK AROUND UNIT. PT UP AD KIARA ON UNIT. PT NOT TALKING TO THIS FINANCE TEACHER.
--- NOTE | 2020-10-31 14:04 | NUR ---
PT DID EAT WELL FOR LUNCH. PT ATE 100% OF LUNCH OTHER THAN THE JELLO.
--- NOTE | 2020-10-31 17:42 | NUR ---
ISAAC and Dr. Lopez participated in a phone call with Pt's , Bennie, and sister, Barby. Pt was also apart of this meeting. An update wasgiven and recommendation for PHP on d/c was given. Dr. Lopez advised that if Pt was not responsive to the PHP Pt may benefit from ECT treatments. Emotional support and encouragement was offered to the Pt during this meeting. ISAAC will follow up
--- NOTE | 2020-10-31 18:51 | NUR ---
PT GOING TO DISCHARGE THURS. PT WANTING TO TALK TO MEN'S LOCKER ROOM ATTENDANT ABOUT WHAT THE PLAN IS AND FRIDAY. PT INTERACTING WITH STAFF.
[2020-10-31 19:44] VITALS: BP 103/62
--- NOTE | 2020-11-01 09:21 | NUR ---
Assumed pt care at 0700. pt was alert and oriented x4. Assessments completed VSS. took meds whole, no difficulty noted. participated in activities. pt ambulates with a steady gait. denies si/hi. denies pain. Stated concern was to get her anxiety under control. Dr Narvaez notified about pt concerns. There was no sign of acute distress noted at the time of assessments. pt asked questions about her medication. pt meds concerns were clarified. At this time pt is in the day room participating in group. will continue to monitor.
[2020-11-01 09:25] VITALS: BP 110/70
[2020-11-01 11:09] LABS: ABSOLUTE NEUTROPHILS 2.2 thou/uL (1.4-8.2); BASOPHILS 2.3 % (0.0-2.0); EOSINOPHILS 4.5 % (0.0-3.0); HEMATOCRIT 38.4 % (37.0-47.0); HEMOGLOBIN 12.7 gm/dL (12.0-15.0); LYMPHOCYTES 17.9 % (24.0-44.0); MCHC 33.1 g/dL (28.0-37.0); MCV 96.8 fL (80.0-100.0); MONOCYTES 9.5 % (1.0-8.0); PLATELET COUNT 163 thou/uL (150-400); POLYS 65.8 % (36.0-66.0); RBC 3.97 mil/uL (4.20-5.00); RDW 14.1 % (10.5-14.5); WBC 3.3 thou/uL (4.0-11.0)
[2020-11-01 11:27] LABS: CALCIUM 9.2 mg/dL (8.5-10.1); CREATININE 0.5 mg/dL (0.6-1.0); POTASSIUM 3.9 mmol/L (3.5-5.1); TOTAL BILIRUBIN 0.4 mg/dL (0.2-1.0); TOTAL PROTEIN 6.1 g/dL (6.4-8.2)
--- NOTE | 2020-11-01 15:00 | NUR ---
ISAAC wallis Pt contacted [facility] to schedule and intake appointment for IOP program. The appointment is scheduled for 11/03/2020 @ 2pm. ISAAC also spoke with Pt's [employer] creative manager, Jessica Holland [phone], concerning Pt's needs. Jessica emailed a MELODIE for Pt to sign for [place] to speak with her . Pt was able to review and sign. The form was emailed back to Jessica Holland at [email or web address].
[2020-11-01 19:45] VITALS: BP 99/64
--- NOTE | 2020-11-01 20:19 | NUR ---
Assumed care on 11/01/20 @ 1900, in her room with the light off lying in bed. Agreed to let the light be turned on and sat up to have a conversation and allowed assessment. HRRR, Lungs CTA bilat, ABD n bowel sounds. Denies pain, hallucinations. Reports anxiety and depression at a 5/10 level. Reports is worried about the bills at home, further agrees that her is taking care of the bills while she is at the hospital. Will continue to monitor as per unit protocol for safety and comfort.
[2020-11-02 00:25] VITALS: BP 99/64
[2020-11-02 08:30] VITALS: BP 99/64
--- NOTE | 2020-11-02 08:49 | NUR ---
PT UP THIS AM TO EAT BREAKFAST. PT DENIES ANY PAIN OR ISSUES. PT GOING HOME TODAY. PT STATED SHE WAS SCARED ABOUT GOING HOME AND EVERYTHING GOES WELL. PT UP AD KIARA WITH STEADY GAIT. PT TOOK MEDS THIS AM WITHOUT ANY ISSUES.
[2020-11-02 08:58] VITALS: BP 99/64
[2020-11-02 09:55] VITALS: BP 99/64
[2020-11-02] MEDS ORDERED: REMERON15 M1 PO (10:24)
[2020-11-02] MEDS ORDERED: LORAZEPAM 0.50.5 MG PO (10:25)
[2020-11-02] MEDS ORDERED: LATUDA20 MG PO (10:25)
--- NOTE | 2020-11-02 15:00 | NUR ---
PT IS DISCHARGED TO HOME. PT WAS PARTICIPATING IN GROUP TODAY. PT TOOK MEDS WITHOUT ANY ISSUES. PT SITTING IN W/C FOR DISCHARGE. PT LOOKING OVER THE PAPER WORK FOR DISCHARGE. PT TALKING TO YOVANNY MEN'S GOLF COACH ABOUT MED REC INFORMATION REQUEST. SHE WAS HAVING DIFFICULTY ABOUT NEEDING A WITNESS ON GETTING THE INFORMATION. PT SEEMS TO BE STALLING TO GET HOME.
--- NOTE | 2020-11-02 15:50 | NUR ---
PT SIGNED DISCHARGE INFORMATION AND SCRIPTS AND APT FOR PHP IN [facility] [place] WITH D/C INSTRUCTIONS. PT LEFT VIA W/C TO PERSONAL CAR.
--- NOTE | 2020-11-04 15:11 | D ---
[facility] [address] [place] [address] DISCHARGE SUMMARY Name: JENNIE SIFUENTES Room #: 528B-A DIS IN M.R.#: [id number] Admission: 10/23/20 Attend Phys: Drew Narvaez DO Discharge: 11/02/20 Date of : 53 Report #: [id number] THIS REPORT FOR: cc: FAM - No family physician/PCP FAM - No family physician/PCP Drew Narvaez DO ~ DATE OF SERVICE: 11/02/2020 INPATIENT PSYCHIATRIC DISCHARGE SUMMARY ATTENDING PSYCHIATRIST: Drew Narvaez DO. 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 ADDITIONAL DIAGNOSES: Medical diagnoses are as follows: Unspecified anxiety, moderate protein-calorie malnutrition. The patient will be discharging to her home. She is being referred to the [facility] IOP program, which will include medication management. She also is encouraged to see her primary care physician within 2 weeks of discharge. DISCHARGE MEDICATIONS: As follows: Mirtazapine 22.5 mg oral at bedtime, 30 Rx was given for this, called into [facility] on [address] at [place], [place]. Lurasidone 20 mg oral daily in the morning with breakfast, a minimum of 350 calories with this medication, 30-day supply. She was given a 15-day supply of lorazepam 0.5 mg at 0900, 1500, 2100. She should have Glucerna shake twice a day as nutritional supplementation due to her malnutrition. The patient was given crisis suicide hotline information. acticity level: as tolerated diet: regular No alcohol, no illicit drugs. LABORATORY DATA: From this admission, hematology, H and H 12.7 and 38.4, white count 3.3. This is on 11/01/2020. Platelet count 163. Slightly high eosinophils at 4.5. Otherwise, no gross abnormalities. Chemistries from 11/01/2020, sodium 138, potassium 3.9, chloride 104, bicarbonate 28, anion gap 6, BUN 23, creatinine 0.5, estimated GFR 123, glucose 110, calcium 9.2, total bilirubin 0.4, direct bilirubin 0.1, AST 22, ALT 48, alkaline phosphatase 63 Total protein low at 6.1, albumin low at 3.0. [facility] and [facility] [address] [place] [address] DISCHARGE SUMMARY Name: JENNIE SIFUENTES Room #: 528B-A [facility] IN [facility]#: [id number] Admission: 10/23/20 Attend Phys: Drew Narvaez DO Discharge: 11/02/20 Date of : 53 Report #: [id number] TSH were tested in August. They were 1887, which is well in normal range and 0.482. Interestingly, she had a looks like a serum heavy metal screen, which was negative for lead, mercury, arsenic and cadmium. COVID-19 PCR in this admission was negative. REASON FOR ADMISSION: Back in mid October is as follows: A 65-year-old female who had been noncompliant, discontinuing her Ativan and chlorpromazine around 09/22/2020 as well as not following up with the PHP program at [facility], was brought in by her , [facility] and she is not eating well, paranoid ideations that range of things. HOSPITAL COURSE: The patient was admitted to Geriatric Psychiatry Unit. It took a couple of days to sort out the story from what the patient said. She was initially mute, but then responded to Ativan trial and getting the report from her . It sounds like she stopped taking meds. They had trouble with transportation and arrangements for the [facility]. I started her on Ativan 1 mg 3 times a day due to her being a bit groggy, I lowered it to 0.5 mg 3 times a day in the admission. The chlorpromazine I did start initially, but I was not satisfied that given her frailty, low BMI, it was a good idea to titrate the dose, so I discontinued it, started her on lurasidone, which she is tolerating. Remeron started 50 mg at bedtime, increased it to 22.5 mg at bedtime. The patient's weight made some modest strides this admission. We went from around 44 kilos up to 45.359 kilos, so almost 3 pounds gain, which was better than trending otherwise. We had several telephone conversations including family meeting with the and patient's sister. I am very concerned about the patient's compliance and follow through and I discussed if after 4 days or so of PHP, if things are not going well and she is turning adversely, I would recommend her being admitted to hospital for electroconvulsive therapy at [facility] as described to the family. With depression in her age range with these cognitive features, it can become life threatening and ECT would be the textbook way to treat it. VITAL SIGNS: On the day of discharge are as follows: Temperature 36.8, pulse 75, respirations 18, BP 99/64, O2 sat 99%. MUSCULOSKELETAL: Thin, frail. MENTAL STATUS EXAMINATION: Dressed in civilian clothes. She did get a shower this morning. Attention fair. Concentration fair. Speech is normal rate, volume and tone. Thought process: Linear and goal directed. Thought content focused on discharge. Some anticipatory anxiety. Mood and affect congruent and constricted. Denied SI or HI. Denied auditory, visual, or tactile hallucinations. Memory was not formally tested today. However, about 2 days before discharge, we did do a SLUMS, she scored 26/30, which is reassuring. Insight, judgment limited. Fund of knowledge at least average. [facility] [address] [place] [address] DISCHARGE SUMMARY Name: JENNIE SIFUENTES Room #: 528B-A [facility] IN ..#: [id number] Admission: 10/23/20 Attend Phys: Drew Narvaez DO Discharge: 11/02/20 Date of : 53 Report #: [id number] PROGNOSIS: For this patient is guarded and will depend on her investment in recommended psychiatric care and family support assistance. <ELECTRONICALLY SIGNED> By: Drew Narvaez DO 11/04/20 1511 [id number] Drew Narvaez, /nt
== END 2020-11-02 15:45 | disposition home or self-care (01) | DRG 885 ==
LOC: SBH
PROVIDERS: Internal Medicine; ADMIT Psychiatry & Neurology Psychiatry; ATTEND Psychiatry & Neurology Psychiatry
DX: F32.3 Major depressive disorder, single episode, severe with psychotic features (principal); F01.50 Vascular dementia, unspecified severity, without behavioral disturbance, psychotic disturbance, mood disturbance, and anxiety; E43 Unspecified severe protein-calorie malnutrition; Z68.1 Body mass index [BMI] 19.9 or less, adult; F06.1 Catatonic disorder due to known physiological condition; F41.1 Generalized anxiety disorder; R62.7 Adult failure to thrive; Z90.12 Acquired absence of left breast and nipple; Z85.3 Personal history of malignant neoplasm of breast; Z88.1 Allergy status to other antibiotic agents
CPT/HCPCS: 10880